=== PATIENT | male | born 1930 | race Caucasian/White ===

== ENCOUNTER 2016-10-22 07:48 | Day surgery (SDC) | payer MEDICARE ==
--- NOTE | 2016-10-08 06:29 | HP ---
CC: Gurmeet Schmitz DO * HISTORY AND PHYSICAL: DATE OF PLANNED ADMISSION AND SURGERY: 10/22/16 HISTORY OF PRESENT ILLNESS: Mr. Iqbal is an 86-year-old white male who is admitted with recurrent bladder tumors for cystoscopy and transurethral resections. Mr. 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 At that time, a CT urogram showed normal upper tracts. He underwent transurethral resection of the bladder tumor. The pathology showed it to be a well differentiated noninvasive transitional cell carcinoma. The patient was given one dose of intravesical mitomycin C in the PACU. He was followed with periodic cystoscopies. In Jan 2014, he had another recurrence and he underwent transurethral resection of tumor with a placement of left ureteral stent. 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 He received a 6 weeks' course of intravesical BCG completed in March 2014. He was followed with periodic office cystoscopies. He had a small recurrence in March 2015, fulgurated in the office. He had 2 other recurrences fulgurated in the office in December 2015 and March 2016. He had a recent office cystoscopy, which showed 2 flat lesions in the mid trigone and in the base of the bladder both suspicious for recurrent transitional cell carcinoma. Because of these findings, the patient is admitted for the above procedure. PAST MEDICAL HISTORY AND SYSTEM REVIEW: The patient is in good health. He is hypertensive, well controlled on atenolol 50 mg daily and lisinopril 10 mg daily. He has history of gout and is on allopurinol 100 mg daily. PAST SURGICAL HISTORY: Include laminectomy, cholecystectomy and hernia repair in the past. ALLERGIES: He denies any allergies to medications. SOCIAL HISTORY: There is a distant history of smoking and he had stopped in 1968. PHYSICAL EXAMINATION GENERAL: Pleasant, healthy, and fit looking white male, who looks good for his age. VITAL SIGNS: Blood pressure 110/60, pulse of 65. LUNGS: Clear. HEART: Regular and rhythmic. No murmurs. ABDOMEN: Soft, no masses, no tenderness, and no CVA tenderness. 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 PLAN: Cystoscopy and transurethral resection of bladder tumors. I discussed the above plans with the patient. All his questions were answered. [id number]/[facility] #: [id number] AMY
[~2016-10-22 07:48] MED LIST: Buffered Lidocaine 0.9% SYRIN* 5 ML/SYR SYRINGE INTRADERM ONE
[2016-10-22] MEDS ORDERED: Buffered Lidocaine 0.9% SYRIN* 5 ML/SYR SYRINGE ONE (08:11)
[2016-10-22] MEDS ORDERED: cefTRIAXone VIAL(*) 1,000 MG in NS 0.9% 50 ML* 50 ML IVPB ONE (08:30)
[2016-10-22] MEDS ORDERED: Midazolam* 1 MG/ML 2 ML VIAL (2 MG) ONE (08:52)
[2016-10-22] MEDS ORDERED: Famotidine IV* 10 MG/ML 2 ML (20 mg) ONE (08:52)
[2016-10-22] MEDS ORDERED: fentaNYL* 50 MCG/ML 2 ML VIAL (100 MCG VIAL) ONE ×2 (08:52→11:43)
[2016-10-22] MEDS ORDERED: Dexamethasone IV* 4 MG/ML 1 ML (4 MG) ONE (09:40)
[2016-10-22] MEDS ORDERED: Propofol* 10 MG/ML 20 ML BTL IV PUSH ONE (09:40)
[2016-10-22] MEDS ORDERED: Lidocaine 2% PF * 5 ML VIAL ONE (09:40)
[2016-10-22] MEDS ORDERED: Ondansetron INJ* 2 MG/ML VIAL ONE (09:59)
[2016-10-22] MEDS ORDERED: EPHEDrine (Pressors)* 50 MG/ML VIAL ONE (10:02)
[2016-10-22] MEDS ORDERED: Ondansetron INJ* 2 MG/ML VIAL IV PRN (10:04)
[2016-10-22] MEDS ORDERED: Acetaminophen TAB* 325 MG PO PRN (10:04)
[2016-10-22] MEDS ORDERED: fentaNYL* 50 MCG/ML 2 ML VIAL (100 MCG VIAL) IV PRN (10:04)
[2016-10-22] MEDS ORDERED: HYDROcodone/ACETAMIN 5-325 MG* 1 TAB PO PRN (10:04)
[2016-10-22] MEDS ORDERED: PROCHLORPERAZINE INJ 5 MG/ML 2 ML VIAL IV PRN (10:04)
[2016-10-22] MEDS ORDERED: DiMENhydriNATE IV* 50 MG/ML VIAL IV PUSH PRN (10:04)
[2016-10-22] MEDS ORDERED: Acetaminophen TAB* 325 MG ONE (10:58)
[2016-10-22] MEDS ORDERED: mitoMYcin PWD* 40 MG in Sterile Water for Inj* 40 ML IRRIGATION ONE (12:00)
[2016-10-22 13:42] VITALS: BP 141/70
--- NOTE | 2016-10-23 00:54 | OP ---
CC: Dr. Gurmeet Schmitz * DATE OF OPERATION: 10/22/16 - [facility] DATE OF : 34 SURGEON: Myles Gill MD ANESTHESIOLOGIST: Blake Pyle MD ANESTHESIA: General. PRE-OP DIAGNOSIS: Recurrent bladder tumors. POST-OP DIAGNOSES: 1. Recurrent bladder tumors. 2. Pending pathology. OPERATIVE PROCEDURE: 1. Cystoscopy. 2. Excisional biopsies and fulguration of bladder lesions (2 cm, base of bladder). INDICATIONS: Mr. 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 Pathology showed tumors to be low grade and noninvasive. He had recurrence in January 2014 and that was associated with carcinoma in situ. He received 6 weeks' course of intravesical BCG. The patient had two small recurrences that were fulgurated in the office. Recent office cystoscopy showed two flat recurrences in the base of the bladder suspicious for recurrent low-grade tumors. Because of the above history and findings, the patient is admitted for the above procedure. PATHOLOGY AT CYSTOSCOPY: The penile and bulbar urethrae looked normal. The prostatic urethra measures about 2.5 cm in length and there was moderate degree of prostate enlargement. Examination of the bladder showed two flat lesions adjacent to each other. The lesions looked like a low-grade flat transitional cell carcinoma. There were no other suspicious lesions seen. Scarring from the previous biopsies was noted. The ureteral orifices looked normal. No areas suggestive of carcinoma in situ were seen. DESCRIPTION OF PROCEDURE: After successful general anesthesia, the patient was placed in the lithotomy position and prepped and draped for a cystoscopy. Cystoscopy was performed. The bladder was inspected and the above findings were noted. Using the rigid biopsy forceps, biopsies were obtained from both lesions including superficial muscle. The biopsies were sent for pathology. The sites of the biopsies were then fulgurated with the Bugbee electrode. At the completion of the procedure, there were no residual suspicious lesions seen. There was very good hemostasis. There was no evidence of bladder perforation. The cystoscope was removed and the size 18 Vietnamese Beavers catheter was passed inside the bladder and the balloon inflated to 10 cc of water. The patient tolerated the procedure well and left the operating room in good condition. The plan is to give the patient one dose of intravesical mitomycin-C in the PACU. [id number]/[facility] #: [id number] MTDJulien
== END 2016-10-22 13:30 | disposition home or self-care (01) ==
LOC: OR 07:48
PROVIDERS: ATTEND Urology
DX: N30.80 Other cystitis without hematuria (principal); Z85.51 Personal history of malignant neoplasm of bladder; N40.0 Benign prostatic hyperplasia without lower urinary tract symptoms; I10 Essential (primary) hypertension; M10.9 Gout, unspecified; Z87.891 Personal history of nicotine dependence; Z88.6 Allergy status to analgesic agent
CPT/HCPCS: 88305; A9270-GY; J0696; J1100; J2250; J2405; J2704; J3010; J9280

== ENCOUNTER 2018-02-15 08:44 | Observation (INO) | payer MEDICARE ==
--- NOTE | 2018-02-11 18:46 | HP ---
CC: Dr. Gurmeet Schmitz * HISTORY AND PHYSICAL: DATE OF PLANNED ADMISSION AND SURGERY: 02/15/18 HISTORY OF PRESENT ILLNESS: Mr. Iqbal is an 87-year-old white male, who is admitted with history of bladder tumors, recurrent bladder lesion, for cystoscopy, transurethral resection and possible placement of right ureteral stent. Mr. 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 CT urogram at that time was normal. He underwent transurethral resection of the bladder tumor and the pathology showed it to be a well-differentiated noninvasive transitional cell carcinoma. He was given 1 dose of intravesical mitomycin-C in the PACU. He was continued with close follow-ups with periodic office cystoscopies. In January 2014, he underwent transurethral resection of a recurrent lesion in the left base of the bladder with insertion of a left ureteral stent. The pathology showed the tumor to be again low-grade transitional cell carcinoma associated with carcinoma in situ. There was no invasion. He was then given 6 weeks' course of intravesical BCG. He did well except for small recurrences that were fulgurated in the office. In October 2016, he underwent cystoscopy and biopsy of a bladder lesion. 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 He underwent a recent cystoscopy in the office. There was irregularity of the mucosa of the right trigone suspicious for recurrent transitional cell carcinoma. Renal ultrasound was normal. He is now admitted for excision of the above lesion. Because of the proximity of the lesion to the right ureteral orifice, he might need an insertion of right ureteral stent. PAST MEDICAL HISTORY AND SYSTEM REVIEW: He is healthy. He is followed by Dr. Schmitz, who saw him preoperatively for medical evaluation and was cleared for the procedure. He is maintained on aspirin 81 mg daily. He is on tamsulosin 0.4 mg daily for bladder outlet obstruction. He is hypertensive, maintained on atenolol 50 mg daily and on lisinopril 10 mg daily. He has a history of gout and he is on allopurinol 100 mg daily. He denies any cardiac disease or cardiac symptoms. He is fairly healthy and active for his age. ALLERGIES: He denies any allergies to medications. FAMILY HISTORY: Negative for bladder tumors. His mother at the age of 85 of pulmonary embolism and his father with an abdominal aortic aneurysm. SOCIAL HISTORY: He is a nonsmoker. PHYSICAL EXAMINATION GENERAL: He is a pleasant and healthy-looking white male, who looks good for his age. VITAL SIGNS: Blood pressure 120/76, pulse of 70. LUNGS: Clear. HEART: Regular and rhythmic. No murmurs. ABDOMEN: Soft. No masses. No tenderness and no CVA tenderness. IMPRESSION: 1. 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 2. Hypertension, well controlled. PLAN: The plan is for cystoscopy and transurethral resection of the bladder lesion. A right ureteral stent might need to be inserted because of the proximity of the right ureteral orifice to the lesion. I discussed the above plans in detail with the patient. All his questions were answered. [id number]/[facility] #: [id number] MTDJulien
[~2018-02-15 08:44] MED LIST changes: +Lactated Ringers 1000 ML Bag* 1,000 ML IV SCH
[2018-02-15] MEDS ORDERED: cefTRIAXone(*) 2 GM ADDV.VIAL IVPB ONE (10:05)
[2018-02-15] MEDS ORDERED: Ondansetron INJ* 2 MG/ML VIAL IV PRN (10:29)
[2018-02-15] MEDS ORDERED: Acetaminophen TAB* 325 MG PO PRN (10:29)
[2018-02-15] MEDS ORDERED: DiMENhydriNATE IV* 50 MG/ML VIAL IV PUSH PRN (10:29)
[2018-02-15] MEDS ORDERED: diPHENhydraMINE IV* 50 MG/ML 1 ml VIAL (BENADRYL) IV PRN (10:29)
[2018-02-15] MEDS ORDERED: fentaNYL* 50 MCG/ML 2 ML VIAL (100 MCG VIAL) IV PRN (10:29)
[2018-02-15] MEDS ORDERED: HYDROcodone/ACETAMIN 5-325 MG* 1 TAB PO PRN (10:29)
[2018-02-15] MEDS ORDERED: Naloxone* 0.4 MG/ML 1 ML VIAL IV PRN (10:29)
[2018-02-15] MEDS ORDERED: PROCHLORPERAZINE INJ 5 MG/ML 2 ML VIAL IV PRN (10:29)
[2018-02-15] MEDS ORDERED: fentaNYL* 50 MCG/ML 2 ML VIAL (100 MCG VIAL) ONE ×2 (10:45→13:14)
[2018-02-15] MEDS ORDERED: Midazolam* 1 MG/ML 2 ML VIAL (2 MG) ONE (10:45)
[2018-02-15] MEDS ORDERED: Iohexol 180 (CONTRAST) 10 ML SDV IV ONE (11:36)
[2018-02-15] MEDS ORDERED: Dexamethasone IV* 4 MG/ML 1 ML (4 MG) ONE (12:02)
[2018-02-15] MEDS ORDERED: Famotidine IV* 10 MG/ML 2 ML (20 mg) ONE (12:02)
[2018-02-15] MEDS ORDERED: EPHEDrine (Pressors)* 50 MG/ML VIAL ONE (12:02)
[2018-02-15] MEDS ORDERED: Ondansetron INJ* 2 MG/ML VIAL ONE (12:02)
[2018-02-15] MEDS ORDERED: Lidocaine 2% PF * 5 ML VIAL ONE (12:02)
[2018-02-15] MEDS ORDERED: Propofol* 10 MG/ML 20 ML BTL ONE (12:02)
[2018-02-15] MEDS ORDERED: Fluorescein 10% INJ* 100 MG/ML AMP ONE (12:18)
[2018-02-15 13:38] LABS: ABS Basophils 0 10^3/ul (0-0.2); ABS Eosinophils 0.1 10^3/ul (0-0.6); ABS Lymphocytes 1.8 10^3/ul (1.0-4.8); ABS Monocytes 0.3 10^3/ul (0-0.8); ABS Neutrophils 3.7 10^3/ul (1.5-7.7); ABS Nucleated RBC 0 10^3/ul; Eosinophil % 1.8 %; Hematocrit 38 % (42-52); Hemoglobin 12.8 g/dl (14.0-18.0); Lymphocyte % 30.8 %; Mean Corpuscular HGB Conc 34 g/dl (31-36); Mean Corpuscular Hemoglobin 31 pg (27-31); Mean Corpuscular Volume 91 fL (80-94); Mean Platelet Volume 8.3 fL (7.4-10.4); Nucleated Red Blood Cells % 0; Platelet Count 116 10^3/ul (150-450); Red Blood Count 4.19 10^6/ul (4.00-5.40); Red Cell Distribution Width 14 % (10.5-15)
[2018-02-15] MEDS ORDERED: Metoprolol Tartrate IV* 1 MG/ML 5 ML VIAL IV ONE (13:40)
[2018-02-15] MEDS ORDERED: Metoprolol Tartrate IV* 1 MG/ML 5 ML VIAL ONE (13:41)
[2018-02-15] MEDS ORDERED: Diltiazem IV* 5 MG/ML 5 ML VIAL (for loading dose/IV Push) (25 MG) IV SLOW PU ONE (13:54)
[2018-02-15] MEDS ORDERED: mitoMYcin PWD* 40 MG in Sterile Water for Inj* 40 ML IRRIGATION ONE (14:00)
[2018-02-15 14:02] LABS: Calcium 8.7 mg/dL (8.6-10.3); EGFR Non-African American 64.3 (>60); Magnesium 1.9 mg/dL (1.9-2.7); Potassium 4.9 mmol/L (3.5-5.0)
[2018-02-15] MEDS ORDERED: Magnesium Sulfate 1 GM IV* 1 GM/100 ML BAG IV ONE (14:11)
[2018-02-15] MEDS ORDERED: Metoprolol Tartrate TAB* 25 MG PO SCH (16:00)
--- NOTE | 2018-02-15 18:06 | ECHO ---
Patient: SIMRAN ALVAREZ I [facility] Rec#: [id number] : 1930 Date: 02/15/2018 Age: 87y Height: 178 cm / 70.1 in Weight: 87 kg / 191.7 lbs Sex: M BSA: 2.05 Room#: [place] [id number] Admit Date#: 02/15/2018 Type: Inpatient Referring: Hugo Jeffries Reading: Bairon Mosqueda MD Advertising Editor: Andree Vivas RDCS CC: Gurmeet Schmitz DO Transthoracic Echocardiogram Indication: Abnormal EKG BP: 116/87 HR: 139 Rhythm: A-Fib Findings History: HTN, former smoker, low grade transitional cell carcinom of the urinary bladder. Technical Comments: The study quality is good. Completed at 1650. Left Ventricle: The left ventricular chamber size is normal. There is no left ventricular hypertrophy. Global left ventricular wall motion and contractility are within normal limits. There is normal left ventricular systolic function. The estimated ejection fraction is 55-60%. The assessment of diastolic function is non-diagnostic. Left Atrium: The left atrium is severely dilated. Right Ventricle: Moderator Band present. The right ventricle is mildly dilated. The right ventricular global systolic function is low normal. Right Atrium: The right atrium is moderate to severely dilated. Aortic Valve: The aortic valve is trileaflet. The aortic valve leaflets are mildly thickened. There is a trace of aortic regurgitation. There is no evidence of aortic stenosis. Mitral Valve: There is mitral annular calcification. The mitral valve leaflets are mildly thickened. There is mild to moderate mitral regurgitation. There is no evidence of mitral stenosis. Tricuspid Valve: The tricuspid valve leaflets are normal. There is mild tricuspid regurgitation. The right ventricular systolic pressure is estimated at 31 mmHg. There is no tricuspid stenosis. Pulmonic Valve: The pulmonic valve appears normal. There is a trace pulmonic regurgitation. There is no pulmonic stenosis. Pericardium: There is no significant pericardial effusion. A pericardial fat pad is visualized. Aorta: There is mild dilatation of the ascending aorta. The aortic arch is not well visualized. There is mild dilatation of the aortic root. Pulmonary Artery: The main pulmonary artery appears normal. Venous: The inferior vena cava is dilated. There is a greater than 50% respiratory change in the inferior vena cava dimension. Summary: There was not any prior study for comparison. Conclusions Global left ventricular wall motion and contractility are within normal limits. There is normal left ventricular systolic function. The estimated ejection fraction is 55-60%. There is no evidence of aortic stenosis. There is mild to moderate mitral regurgitation. There is mild tricuspid regurgitation. The right ventricular systolic pressure is estimated at 31 mmHg. There is no significant pericardial effusion. Measurements Name Value Normal Range RVIDd (AP) 2D 3.4 cm (0.9 - 2.6) RVDdMajor (2D) 4.5 cm (2.2 - 4.4) RAd ISD 4CH 6.4 cm (3.4 - 4.9) RA (A4C)W 4.6 cm (2.9 - 4.6) IVSd (2D) 0.9 cm (0.6 - 1) LVPWd (2D) 1 cm (0.6 - 1) LVIDd (2D) 5.1 cm (3.6 - 5.4) LVIDs (2D) 3.4 cm - LV FS (2D) 32 % (25 - 45) Aortic Annulus 1.8 cm (1.4 - 2.6) Ao root diameter (2D) 3.7 cm (2.1 - 3.5) Ascending Ao 3.7 cm (2.1 - 3.4) LA dimension (AP) 2D 4.8 cm (2.3 - 3.8) LAd ISD 4CH 6.7 cm (2.9 - 5.3) LA ISD 4CH W 4.7 cm (2.5 - 4.5) Name Value Normal Range LA ESV BP (A/L) index 21 ml/m2 - Name Value Normal Range MV E-wave Vmax 1.1 m/sec - MV deceleration time 154 msec - LV septal e' Vmax 0.06 m/sec - LV lateral e' Vmax 0.07 m/sec - LV E:e' septal ratio 18.3 ratio - LV E:e' lateral ratio 15.7 ratio - Name Value Normal Range AV Vmax 1 m/sec - AV VTI 21 cm - AV peak gradient 4 mmHg - AV mean gradient 2 mmHg - LVOT Vmax 0.8 m/sec - LVOT VTI 15 cm - LVOT peak gradient 2 mmHg - LVOT mean gradient 1 mmHg - AUDELIA Vmax 0.4 m/sec - Name Value Normal Range TR Vmax 2.4 m/sec - TR peak gradient 23 mmHg - RAP 8 mmHg - RVSP 31 mmHg - IVC diameter 2.7 cm - Name Value Normal Range PV Vmax 0.7 m/sec - PV peak gradient 2 mmHg -
[2018-02-15] MEDS ORDERED: Rivaroxaban TAB(*) 20 MG TAB PO SCH (19:00)
[2018-02-15] MEDS: Metoprolol Tartrate TAB* 25 MG PO SCH (20:57)
--- NOTE | 2018-02-15 21:41 | HP ---
HISTORY AND PHYSICAL: DATE OF ADMISSION: 02/15/18 ADMITTING PROVIDER: Hugo Jeffries MD PRIMARY CARE PROVIDER: Dr. Gurmeet Schmitz UROLOGIST: Myles Gill MD CHIEF COMPLAINT: Tachycardia, suspected a-flutter/AFib in postoperative recovery room in the setting of cystoscopy with excision of recurrent transitional cell carcinoma of the right trigone. HISTORY OF PRESENT ILLNESS: Robert Iqbal is an 87-year-old male with past medical history of bladder tumor with recurrent bladder lesion, gout, hypertension, who had an excision of his recurrent transitional cell carcinoma today with Dr. Gill which was relatively uneventful. In the recovery room, he was noted to have tachycardia with rates in the 120s and tele strips, eventual EKGs were concerning for possible arrhythmia in particular a-flutter versus atrial fibrillation. He was referred to the hospitalist service for consultation and ultimately admission given the a-flutter with rapid ventricular response. He denies any history of heart problems including no myocardial infarction or former echocardiograms. He denies any chest pain, orthopnea, or lower extremity edema. In the PACU, he was given 5 mg of IV Lopressor without improvement in rates and then 10 mg of IV diltiazem which did improve his rates, but also his blood pressure dropped to 90s/50s from former 130s/90s and did have some dizziness with this. PAST MEDICAL HISTORY: Gout, hypertension, bladder tumors with recurrence, and transitional cell carcinoma. MEDICATIONS: 1. Flomax 0.4 mg p.o. daily. 2. Multivitamin 1 tab p.o. daily. 3. Lisinopril 10 mg p.o. daily. 4. Atenolol 50 mg p.o. q.a.m. 5. Aspirin 81 mg a day. 6. Allopurinol 100 mg p.o. q.a.m. 7. Tylenol extra strength 5 mg p.o. at bedtime p.r.n. ALLERGIES: NSAIDs create GI upset, ADHESIVE TAPE causes skin skin irritation. FAMILY HISTORY: His mother at age 84 of CHF and his father at age 77 of abdominal aortic aneurysm rupture. SOCIAL HISTORY: He is a nonsmoker, nondrinker. No drug use. REVIEW OF SYSTEMS: A complete 14-point review of systems negative except as per HPI. PHYSICAL EXAMINATION GENERAL APPEARANCE: No acute distress. VITAL SIGNS: Temperature 97.3, heart rate in the 120s, satting mid 90% on room air, blood pressure initially 140s/100s. HEENT: Normocephalic, atraumatic. Pupils are equal, round and reactive to light. Extraocular motions intact. No scleral icterus. LUNGS: Clear to auscultation anteriorly with no wheezing, rales, or rhonchi. CARDIOVASCULAR: Tachycardic, irregular rate. No murmurs, rubs or gallops appreciated. EXTREMITIES: Warm, well perfused. No peripheral edema. Does have a Beavers catheter. DIAGNOSTIC STUDIES/LAB DATA: Labs were added on, white count 6.0, hemoglobin 12.8, hematocrit 38, platelets 116. Sodium 138, potassium 4.9, chloride 109, carbon dioxide 23, BUN 24, creatinine 1.09, glucose 151. Magnesium 1.9. EKG at 1302 with tachycardia 121, regular but no clear P waves. Additional EKG at 1537 with atrial flutter, no ST elevations or depression, heart rate 98. Poor R wave progression. ASSESSMENT AND PLAN: Robert Iqbal is an 87-year-old male, status post hypertension on atenolol presenting in the postoperative area with evidence of a -flutter with rates in the 120s, have improved now with additional beta- blockers. He denies any other significant cardiovascular history. I am adding an echocardiogram, consideration for JAYDEN cardioversion tomorrow. Anticoagulation was discussed with Dr. Gill who said that was okay even postprocedurally - starting Eliquis 20 mg daily . I am starting metoprolol tartrate 25 mg q.6 hours now with additional consideration of adding diltiazem 30 mg q.6 hours if rates are further uncontrolled. Will hold his atenolol for now (and would clarify if he took that the morning of surgery which may be contributing to the tachycardia). It is unclear if this is new onset or he has been asymptomatic with this for quite a while. He did have a last EKG on which demonstrated normal sinus rhythm at that time. We will continue his Flomax, his allopurinol. He will need a heart healthy diet. He is a full code. Medical surrogate is his , Christen Iqbal. [id number]/[facility] #: [id number] [facility]
--- NOTE | 2018-02-15 21:50 | OP ---
CC: Dr. Gurmeet Schmitz, [facility] * DATE OF OPERATION: 02/15/18 - ROOM #440 DATE OF : 34 SURGEON: Dr. Gill. ANESTHESIOLOGIST: Dr. Nathan Pyle. ANESTHESIA: General. PRE-OP DIAGNOSIS: Bladder lesions, right trigone. History of Ca bladder POST-OP DIAGNOSIS: Bladder lesions, right trigone. Pending Pathology. OPERATIVE PROCEDURE: 1. Cystoscopy. 2. Transurethral resection of bladder lesions of right trigone (3 cm). 3. Right retrograde pyelography and placement of right ureteral stent (6-Omani ). INDICATIONS FOR PROCEDURE: Mr. Iqbal is an 87-year-old white male who has past history of bladder tumors. All the tumors were superficial and well differentiated. He had a recent office cystoscopy which showed irregularity of the mucosa of the right trigone including the right ureteral orifice. The gross appearance of the lesions was that of a low-grade superficial transitional cell carcinoma versus carcinoma in situ. Because of the above history and findings, the patient admitted for transurethral resection. PATHOLOGY AT CYSTOSCOPY: The penile and bulbar urethra looked normal. The prostatic urethra was open consistent with the history of TURP. Examination of the trigone showed a patulous left ureteral orifice from previous resections. There was irregularity of the mucosa of the right trigone including the right ureteral orifice. The area covered a distance of about 3 cm. The appearance was that of a well differentiated superficial transitional cell carcinoma. The right ureteral orifice was difficult to identify. No other suspicious bladder lesions seen. No papillary lesions, or changes to suggest CIS noted. No calculi or diverticula were seen. Moderate degree of trabeculations. Right retrograde pyelography showed no abnormal filling defects in the ureter or the collecting system, and no hydronephrosis noted. DESCRIPTION OF PROCEDURE: After successful general anesthesia, the patient was placed in the lithotomy position and was prepped and draped for cystoscopy. The cystoscopy was performed. The bladder was carefully inspected and the above findings were noted. The resectoscope was then introduced inside the bladder. The tumor in the right trigone was resected down to muscle. The orifice itself was also resected. The resected tissue was then evacuated and sent for pathology. The cystoscope was introduced inside the bladder. The right ureteral orifice was identified and a hybrid wire was passed in the ureter. A size 5-Omani open -ended catheter was fed on top of the guidewire. Retrograde pyelography was performed. A 6-Omani stent was then placed with the proximal end coiling in the collecting system and the distal end coiling inside the bladder. The resectoscope was then reintroduced inside the bladder. Extensive fulguration of the resected area was then performed. At the completion of the procedure, there was very good hemostasis. There were no residual tumors seen. The stent was in good position. The resectoscope was removed and a size 18-Omani Beavers catheter was passed inside the bladder and the balloon inflated with 10 cc of water. The plan is to give the patient 1 dose of intravesical mitomycin-C in the recovery room. The stent will need to be kept in place for 3 weeks to allow healing of the ureteral orifice.. [id number]/[facility] #: [id number] MTDD
[2018-02-16] MEDS: Metoprolol Tartrate TAB* 25 MG PO SCH ×2 (02:11→08:20)
[2018-02-16 06:33] LABS: ABS Basophils 0 10^3/ul (0-0.2); ABS Eosinophils 0 10^3/ul (0-0.6); ABS Monocytes 0.5 10^3/ul (0-0.8); ABS Neutrophils 6.7 10^3/ul (1.5-7.7); ABS Nucleated RBC 0 10^3/ul; Eosinophil % 0 %; Hematocrit 38 % (42-52); Hemoglobin 12.9 g/dl (14.0-18.0); Lymphocyte % 12.1 %; Mean Corpuscular HGB Conc 34 g/dl (31-36); Mean Corpuscular Hemoglobin 31 pg (27-31); Mean Corpuscular Volume 91 fL (80-94); Mean Platelet Volume 9.3 fL (7.4-10.4); Nucleated Red Blood Cells % 0; Platelet Count 132 10^3/ul (150-450); Red Blood Count 4.19 10^6/ul (4.00-5.40); Red Cell Distribution Width 15 % (10.5-15); White Blood Count 8.3 10^3/ul (3.5-10.8)
[2018-02-16 06:48] LABS: BUN/Creatinine Ratio 22.2 (8-20); Calcium 8.6 mg/dL (8.6-10.3); EGFR Non-African American 54.4 (>60); Magnesium 2.1 mg/dL (1.9-2.7); Potassium 4.9 mmol/L (3.5-5.0)
[2018-02-16] MEDS ORDERED: Allopurinol TAB* 100 MG PO SCH (09:00)
[2018-02-16] MEDS ORDERED: Prenatal Vitamin TAB PO SCH (09:00)
[2018-02-16] MEDS ORDERED: Tamsulosin CAP* 0.4 MG PO SCH (09:00)
[2018-02-16 10:57] VITALS: BP 147/83
--- NOTE | 2018-02-16 13:50 | CONS ---
CC: Dr. Gurmeet Schmitz; Dr. Hugo Jeffries; Dr. Gill CARDIOLOGY CONSULTATION: DATE OF CONSULT: 02/16/18 INDICATION FOR CONSULT: Atrial fibrillation, flutter. HISTORY OF PRESENT ILLNESS: The patient is an 87-year-old gentleman who is relatively healthy, who c alyssa to the hospital for a cystoscopy for transitional cell carcinoma of the bladder. While he was in the operating room, his heart rate was noted to be irregular. In the recovery area, they did an EKG , which showed atrial fluter with varying heart rate responses. It is unclear, how long the patient has been in this abnormal rhythm. He has not had an EKG in years. On arrival, he did not get an EKG . His initial telemetry strip from the operating room, he has atrial flutter. In speaking with the patient today, he really has no complaints. He has no palpitations, no shortnes s of breath, no chest pain, no lightheadedness, dizziness, or syncope. The patient states at home, h e has actually been doing well and his usual activities. PAST MEDICAL HISTORY: Significant for gout, hypertension, bladder cancer. OUTPATIENT MEDICATIONS: 1. Flomax 0.4 mg a day. 2. Multivitamin a day. 3. Lisinopril 10 mg a day. 4. Atenolol 50 mg a day. 5. Aspirin 81 mg a day. 6. Allopurinol. ALLERGIES: He intolerant of NSAIDs. FAMILY HISTORY: His mother of congestive heart failure at 84. Father at 77 of aortic aneu rysm. SOCIAL HISTORY: He is a retired pharmacist. He is . He denied tobacco or alcohol use. He d oes get regular exercise. REVIEW OF SYSTEMS: Negative for fevers and chills. Negative for changes in bowel or bladder habits. His weight has been stable. Other 12-point review is unremarkable. PHYSICAL EXAM: Vital Signs: Height is 5 feet 10 inches, weight is 191 pounds, temperature 98.4, hea rt rate is 113, blood pressure 147/83, respiratory rate is 18, oxygen saturation 98% on room air. Sc lerae anicteric. Oropharynx is pink without erythema. Carotids are 2+ without bruits. JVD is anabell l. Thyroid is normal. Cardiac exam, S1 and S2, irregular. No murmurs, rubs, or gallops. PMI is nor mal. Lungs are clear to auscultation bilaterally. There is no dullness to percussion. Abdomen is sof t, nontender, nondistended with normal active bowel sounds. Extremities show no edema. He has 2+ pul ses throughout. The patient is awake, alert, and oriented. He moves all 4 extremities equally. DIAGNOSTIC STUDIES/LAB DATA: CBC is within normal limits. Chemistry is within normal limits. BUN 28 , creatinine 1.2. Echocardiogram yesterday demonstrates normal LV size and systolic function. No significant valvular abnormalities. He does have significant left atrial enlargement. IMPRESSION: An 87-year-old gentleman status post cystoscopy yesterday for transitional cell carcinom a of the bladder. His rhythm in the operating room was irregular and an EKG in the postop unit showe d atrial flutter. It is unclear how long the patient has been in this abnormal rhythm. He is asymptomatic. PLAN/RECOMMENDATIONS: For now, my recommendation is to rate control and anticoagulation. The patien t will be sent home on his atenolol 50 mg a day as well as Cardizem CD 240 mg a day. The patient terrance l be started on Xarelto 20 mg a day for anticoagulation. I will see the patient in follow up at the [facility] in 10 to 14 days. The patient will get an outpatient Holter monitor through [facility] next week. [id number]/[facility] #: [id number]
--- NOTE | 2018-02-16 21:54 | DS ---
CC: Dr. Gurmeet Schmitz; Dr. Myles Gill; Dr. Bairon Mosqueda * DISCHARGE SUMMARY: DATE OF ADMISSION: 02/15/18 DATE OF DISCHARGE: 02/16/18 PRIMARY CARE PROVIDER: Dr. Gurmeet Schmitz. UROLOGIST: Dr. Myles Gill. BUSINESS INTEGRATION ANALYST: Dr. Bairon Mosqueda. ATTENDING PHYSICIAN: Dr. Roxana Lancaster * (dictated by Zofia Gutierres NP). PRIMARY DIAGNOSES: 1. New onset atrial flutter. 2. Bladder cancer, status post excision. SECONDARY DIAGNOSES: 1. Hypertension. 2. Gout. STUDIES WHILE IN THE HOSPITAL: 1. EKG on 02/15/18, shows tachycardia, likely atrial flutter with a rate of 121. QTc 474. 2. EKG on 02/15/18 shows atrial flutter with a rate of 98. QTc 518. 3. Transthoracic echocardiogram on 02/15/18 reads as the left ventricular wall motion and contractility are within normal limits. There is normal left ventricular systolic function. The estimated ejection fraction is 55-60%. There is no evidence of aortic stenosis. There is mild to moderate mitral regurgitation. There is mild tricuspid regurgitation. The right ventricular systolic pressure is estimated at 31 mmHg. There is no significant pericardial effusion. HISTORY OF PRESENT ILLNESS AND HOSPITAL COURSE: Mr. Iqbal is an 87-year-old male with past medical history of hypertension, gout, and bladder cancer who presented to [facility] on 02/16/18, for a cystoscopy with Dr. Gill for a history of transitional cell carcinoma of the bladder. Please see the history and physical by Dr. Jeffries for complete summary of the events leading up to his hospitalization. In short, the patient had an uneventful excision of recurrent transitional cell carcinoma in the OR. In the recovery room, he was noted to have tachycardia in the 120s and an EKG was performed which was concerning for atrial flutter. The patient has no history of arrhythmias. He was referred to the hospitalist service for new onset atrial flutter. The patient had a relatively uneventful night. He was started on diltiazem for rate control and as of this morning, heart rate has been in the 90s to 110s. He is asymptomatic and denies any palpitations, chest pain, shortness of breath , or dizziness. He was seen by Dr. Mosqueda from Cardiology, who recommended rate control and anticoagulation. The patient had previously been started on Xarelto on the day of admission. Dr. Mosqueda recommended the patient continue his atenolol which he was taking as an outpatient as well as Cardizem CD 240 mg daily as well as Xarelto 20 mg daily. He would like to see the patient for followup in 10-14 days, at which time he will get a Holter monitor. I had a long discussion with the patient and his family regarding this new diagnosis as well as new medications and they are in understanding of his diagnosis and plans for treatment. He is anxious to return home today. Mr. Iqbal is stable for discharge today. Vital signs are as follows: Temp 98.4 , heart rate 106, respiratory rate 14, oxygen saturation 98% on room air, blood pressure 147/83. DISCHARGE MEDICATIONS: New medications: 1. Diltiazem CD 240 mg p.o. daily. 2. Xarelto 20 mg p.o. daily. Changed medications: 1. Lisinopril 5 mg p.o. daily (previously was 10 mg p.o. daily). Continued medications: 1. Acetaminophen 500 mg p.o. at bedtime p.r.n. pain. 2. Allopurinol 100 mg p.o. daily. 3. Atenolol 50 mg p.o. daily. 4. Multivitamin 1 tab p.o. daily. 5. Tamsulosin 0.4 mg p.o. daily. Discontinued medications: 1. Aspirin. DISCHARGE PLAN: Mr. Iqbal will be discharged home. Activity will be as tolerated. Diet should be heart-healthy. Medications are noted above. He has been started on Cardizem for rate control. He can continue his usual dose of atenolol. I have additionally decreased his lisinopril dose to half his usual dose in an attempt to avoid any hypotension because of the new addition of the Cardizem. He has also been prescribed Xarelto for anticoagulation. I have advised him to stop taking his aspirin at this point. He will need to follow up with his primary care provider to determine if his PCP would like him to continue to take the aspirin for primary prevention. He should follow up with his PCP in 4-7 days. As noted above, he should follow up with Dr. Mosqueda in 10- 14 days and he should follow up with Dr. Gill as previously recommended. He has been advised to return to the emergency room or nearest hospital for any worsening of symptoms, shortness of breath, lightheadedness, dizziness, chest discomfort, high fevers, chills, night sweats, loss of consciousness, or any other worrisome signs or symptoms. This is a summarized report of a complex medical history and hospital stay. For further details, please see the entire medical record. TIME SPENT: Approximately 45 minutes was spent on this discharge. ZOFIA GUTIERRES, CRIB ATTENDANT [id number]/[facility] #: [id number] AMY
[2018-02-16] MEDS ORDERED: Diltiazem TAB* 30 MG PO SCH (23:00)
[2018-02-17] MEDS ORDERED: Diltiazem CD CAP* 240 MG PO SCH (09:00)
== END 2018-02-16 13:26 | disposition home or self-care (01) ==
LOC: OR 08:44 → MEDTELE 15:40
PROVIDERS: ADMIT Internal Medicine; ATTEND Urology
DX: C67.9 Malignant neoplasm of bladder, unspecified (principal); I48.91 Unspecified atrial fibrillation; I10 Essential (primary) hypertension; M10.9 Gout, unspecified; I48.92 Unspecified atrial flutter; Z79.82 Long term (current) use of aspirin; Z87.891 Personal history of nicotine dependence
CPT/HCPCS: 36415; 74420; 80048; 83735; 85025; 88305; 93005; 93306; 96374; 96375; A9270-GY; G0378; J0696; J1100; J2250; J2405; J2704; J3010; J3475; J3490; J9280

== ENCOUNTER → 2018-11-15 | Day surgery (SDC) | payer MEDICARE, OTHER ==
--- NOTE | 2018-11-12 09:26 | HP ---
CC: Dr. Gurmeet Schmitz' office * HISTORY AND PHYSICAL: DATE OF PLANNED ADMISSION AND SURGERY: 11/15/18 HISTORY OF PRESENT ILLNESS: Mr. Iqbal is an 88-year-old white male who is admitted with a bladder tumor for cystoscopy and excisional biopsy. Please refer to the detailed history and physical dated 11/09/[address] Gurmeet Schmitz, the patient's primary care physician and also by the Cardiology clearance note from Dr. Bairon Mosqueda's office, with the note dated 11/04/18. Mr. 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 At that time, the workup of his upper tracts was negative. He underwent a transurethral resection of the bladder tumor. The pathology showed it to be a low grade noninvasive transitional cell carcinoma. 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 At that time, the tumor was involving the left trigone and required stent placement. He completed a 6 weeks' course of intravesical BCG in March 2014. He continued to be followed with periodic cystoscopies and has had several small recurrences of the bladder tumors that were fulgurated in the office. His last recurrence treated in the office was in June 2017. In February 2018, he underwent a cystoscopy and biopsy of the right base of the bladder with insertion of a right ureteral stent in the OR. The pathology was benign. About 2 months ago, the patient started noticing a brownish urine and episodes of painless hematuria and this coincided with him being started on Xarelto because of atrial fibrillation. The gross hematuria was asymptomatic. He had a renal ultrasound which was normal. Office cystoscopy showed a 1 cm bladder tumor just proximal to the bladder neck at 1 o'clock. The rest of the bladder wall looked normal. Because of that finding and after obtaining the medical clearance from Dr. Schmitz and Dr. Mosqueda, the patient is taken to the operating room for cystoscopy and excisional biopsy of the above lesion. The patient will discontinue the Xarelto 2 days prior to the procedure as per Dr. Mosqueda's recommendation. The patient denies any allergies to medications. He is on beta-adilson with atenolol 50 mg daily. He is on lisinopril 5 mg daily and Cardizem 240 mg daily. He was on Xarelto 20 mg daily and that was discontinued 2 days prior to admission. He is on tamsulosin 0.4 mg daily for bladder outlet obstruction. He denies any allergies to medications, although he reports some reaction to the ADHESIVE TAPE and to NSAIDs. IMPRESSION: Past history of superficial low grade transitional cell carcinoma of the urinary bladder with a recurrent tumor causing gross hematuria with normal upper tracts on recent renal ultrasound. The plan is for cystoscopy and excisional biopsy of above lesion. I discussed the above plans with patient and all his questions were answered. [id number]/[facility] #: [id number] MTDD
[~2018-11-15] MED LIST changes: -Buffered Lidocaine 0.9% SYRIN* 5 ML/SYR SYRINGE INTRADERM ONE; +Buffered Lidocaine 1% SYRIN* 1 ML/SYRINGE INTRADERM ONE; +Dexamethasone IV* 4 MG/ML 1 ML (4 MG) ONE; +Famotidine IV* 10 MG/ML 2 ML (20 mg) IV ONE; +Famotidine IV* 10 MG/ML 2 ML (20 mg) ONE; +KETAMINE HCL* 50 MG/ML 10 ML VIAL ONE; +Lidocaine 2% PF * 5 ML VIAL ONE; +Midazolam* 1 MG/ML 5 ML VIAL (5 MG) ONE; +Naloxone* 0.4 MG/ML 1 ML VIAL IV PRN; +Ondansetron INJ* 2 MG/ML VIAL IV PRN; +Ondansetron INJ* 2 MG/ML VIAL ONE; +Propofol* 10 MG/ML 20 ML BTL ONE; +ceFAZolin 2 GM in NS PREMIX(*) 0 GM/0 ML BAG IVPB ONE; +cefTRIAXone(*) 2 GM ADDV.VIAL IVPB ONE; +fentaNYL* 50 MCG/ML 2 ML VIAL (100 MCG VIAL) IV PRN; +fentaNYL* 50 MCG/ML 2 ML VIAL (100 MCG VIAL) ONE; +mitoMYcin PREMIX* 40 MG KIT* 40 MG/40 ML SYRINGE IRRIGATION ONE; +mitoMYcin PWD* 40 MG in Sterile Water for Inj* 40 ML IRRIGATION ONE
[2018-11-15 10:53] VITALS: BP 143/71
--- NOTE | 2018-11-15 15:24 | OP ---
CC: Dr. Gurmeet Schmitz * DATE OF OPERATION: 11/15/18 - [facility] DATE OF : 34 SURGEON: Myles Gill MD ANESTHESIOLOGIST: Dr. Edu Vines. ANESTHESIA: General. PRE-OP DIAGNOSIS: Bladder tumor (bladder neck, 1 o'clock, 1.5 cm). POST-OP DIAGNOSIS: Bladder tumor (bladder neck, 1 o'clock, 1.5 cm). OPERATIVE PROCEDURES: 1. Cystoscopy. 2. Transurethral resection of bladder tumor (1.5 cm). INDICATION FOR PROCEDURE: Mr. Iqbal is an 88-year-old white male who has history of bladder tumors. He was recently started on Xarelto because of atrial fibrillation and he developed gross painless hematuria. Renal ultrasound was normal. Office cystoscopy showed 1.5 cm tumor located just at proximal to the bladder neck at 1 o'clock. The patient is admitted for resection of the above tumor. PATHOLOGY: At cystoscopy, the penile and bulbar urethrae looked normal. The prostatic urethra measured 2.5 cm in length and there was moderate degree of obstruction by prostate enlargement. Examination of the bladder showed areas of scarring of the trigone, the ureteral orifices and various areas of the bladder neck secondary to previous resections and biopsies of bladder lesions. A 1.5 cm flat tumor that had the gross appearance of a medium grade transitional cell carcinoma was noted at 1 o'clock just proximal to the bladder neck. No other suspicious bladder lesions were seen. DESCRIPTION OF PROCEDURE: After successful general anesthesia, the patient was placed in the lithotomy position and was prepped and draped for a cystoscopy. Cystoscopy was performed. The scope had to be angled to be able to identify the tumor. The resectoscope was then introduced inside the bladder. The tumor and the adjacent areas were resected with the resectoscope. The sites of the resection was then thoroughly fulgurated with the coagulation current. The resected tissue was then evacuated and sent for pathology. Final inspection showed good hemostasis. There were no residual tumors seen. The resectoscope was removed and a size 18-Stateless Beavers catheter was passed inside the bladder and the balloon inflated with 10 cc of water. Irrigation yielded clear returns. The patient tolerated the procedure well and left the operating room in good condition. The plan is to give the patient 1 dose of intravesical mitomycin-C in the recovery room. [id number]/[facility] #: [id number] AMY
== END | disposition home or self-care (01) ==
LOC: OR 05:52
PROVIDERS: ATTEND Urology
DX: C67.5 Malignant neoplasm of bladder neck (principal); R31.0 Gross hematuria; I48.91 Unspecified atrial fibrillation; Z79.01 Long term (current) use of anticoagulants; N13.8 Other obstructive and reflux uropathy
CPT/HCPCS: 88305; J0690; J0696; J1100; J2250; J2405; J2704; J3010; J9280